=== PATIENT | female | born 1965 | race Caucasian/White ===

== ENCOUNTER 2025-07-16 15:55 | Outpatient (CLI) | payer OTHER, SELFPAY ==
--- NOTE | 2025-07-16 13:45 | DI.RAD_ITS ---
Exam(s) XR STANDING ALIGNMENT EXAM: XR STANDING ALIGNMENT CLINICAL HISTORY: OA BILAT KNEES. TECHNIQUE: 2D digital imaging was performed. Standing AP views were performed from the pelvis through the ankles. COMPARISON: CR XR KNEE 3V BILAT-M2 from 01/15/2025 FINDINGS: BONES: No acute fracture is present. No bony destructive lesion is seen. Leg length discrepancy: Approximate 15 millimeter overall leg length discrepancy, with the right femoral head projecting superior to the left.. JOINTS: Knees: There is severe degenerative changes of both medial femoral tibial joints causing mild varus angulation. Ankles: Mild degenerative changes of the medial tibiotalar joints. The hip joints show mild degenerative changes. SOFT TISSUE: Mild lower leg edema. IMPRESSION: Severe degenerative changes of the bilateral medial femoral tibial joints. 1.5 cm leg length discrepancy. DATA REPOSITORY: RADIATION DOSE DELIVERED:
== END 2025-07-16 15:56 | disposition home or self-care (01) ==
LOC: DIORS 15:55
PROVIDERS: Visit Provider Physician Assistant
DX: M17.12 Unilateral primary osteoarthritis, left knee (principal); M17.0 Bilateral primary osteoarthritis of knee
CPT/HCPCS: 80048; 85027; 77073

== ENCOUNTER 2025-07-24 06:52 | Day surgery (SDC) | payer OTHER, SELFPAY ==
[2025-07-16 16:10] LABS: HCT 39.6 % (36.0-46.0); HGB 12.9 g/dL (11.2-15.7); MCH 28.9 pg (27.0-33.0); MCHC 32.6 % (32.0-36.0); MCV 89 fL (80-95); MPV 9.6 fL (8.0-11.0); Platelet Count 400 10^3/uL (130-400); RBC 4.46 10^6/uL (3.93-5.22); RDW 13.0 % (11.7-14.6); RDW-SD 42.5 fL; WBC 8.35 10^3/uL (4.4-10.8)
[2025-07-16 16:39] LABS: Anion Gap 11.2 mmol/L (3-11); BUN 12 mg/dL (9-23); CO2 27.8 mmol/L (20.0-31.0); Calcium 9.5 mg/dL (8.3-10.6); Chloride 104 mmol/L (98-107); Glucose 90 mg/dL (74-106); Potassium 3.2 mmol/L (3.5-5.1); Sodium 143 mmol/L (136-145)
[2025-07-24] VITALS (10 sets, daily range): BP systolic 96–171; BP diastolic 36–83; PULSE 57–72; RESP 16–19; TEMP 36.1–36.8; O2SAT 92–97; BMI 28.8
[2025-07-24] MEDS: Acetaminophen 500 MG TAB 1000 MG PO (07:10)
[2025-07-24] MEDS: Gabapentin 300 MG CAP PO (07:11)
[2025-07-24] MEDS: Celecoxib 200 MG CAP 400 MG PO (07:13)
--- NOTE | 2025-07-24 07:28 | PDOC.DSDIS_ITS ---
Date of service: 07/24/25 Discharge Plan Disposition Patient Disposition: Home Condition: Good Discharge Details Reason For Visit: L TKR Attending Provider: Tony Blackburn Primary Care Provider: Jhony Mchugh Home Meds and New Rx's Prescriptions: New celecoxib 200 mg capsule 200 mg PO BID Qty: 60 0RF aspirin 81 mg tablet,delayed release (DR/EC) 81 mg PO BID Qty: 60 0RF acetaminophen 500 mg tablet 1,000 mg PO TID Qty: 90 3RF hydromorphone 2 mg tablet 2 mg PO Q4H PRN (Reason: pain) Qty: 18 0RF pantoprazole 40 mg tablet,delayed release (DR/EC) 40 mg PO DAILY Qty: 14 0RF dexamethasone 4 mg tablet 4 mg PO DAILY Qty: 2 0RF docusate sodium 100 mg capsule 100 mg PO BID PRNQty: 28 0RF gabapentin 300 mg capsule 300 mg PO QHS Qty: 14 0RF Continued metoprolol succinate 50 mg tablet extended release 24 hr 50 mg PO DAILY hydrochlorothiazide 25 mg tablet 25 mg PO DAILY omeprazole 20 mg capsule,delayed release(DR/EC) 20 mg PO DAILY Discharge Instructions Additional Instructions: Total Knee Discharge Instructions Activity: The most important activity is to walk and to work on gentle motion (both flexion and extension). You should try to take short walks a few times a day. It is important that when resting you work on keeping the knee straight. Avoid putting a pillow behind the knee as this will encourage flexion. Work on range of motion exercises as provided by Physical Therapy. - Start outpatient physical therapy within 2 weeks. - You should wear the ARNALDO hose on both legs for 2 weeks. You may remove these at night. You may also use any compression sock in place of the ARNALDO hose. - Utilize [employer] to review exercises, see videos on exercises and obtain basic information pertaining to your surgery and your recovery. Dressing: Remove the Jermaine wrap by 2 days after your surgery and put on the ARNALDO stocking given to you from the hospital. Keep the surgical dressing (underneath the JERMAINE wrap) in place for at least one week. After the first week it may be removed and replaced with light gauze and tape or nothing. The wound and dr marilia may get wet after 3 days but avoid soaking the dressing or otherwise it will need to be changed. Many people prefer covering the dressing with cling wrap (saran wrap) to minimize it from getting soaked. If it gets wet, just pat dry. If it starts to peel off then it will need to be changed. Medications: - You should take Tylenol and anti-inflammatory Celebrex as your primary pain control medications. If the Celebrex is too expensive or not covered, please call the office for another alternative (Advil/Ibuprofen or Naproxen/Aleve) - You have been prescribed a stronger pain medication Oxycodone for breakthrough pain, take as needed as prescribed. - You have also been prescribed a stomach acid reduction agent Pantoprozole to help reduce stomach acid and reflux. - You have been prescribed Gabapentin to take at night for restlessness and nerve pain. - You will be taking Aspirin 81mg twice a day for DVT prevention unless instructed otherwise. - You have also been prescribed Decadron to take to control post-operative nausea and pain. You will start this tomorrow. - If you have constipation you should take Colace or Miralax (both [id number]). It takes most people 3-4 days to have a bowel movement. Follow-up: 2 weeks If you have any acute concerns or questions, please do not hesitate to contact the office at [phone]. You may contact Dr. Blackburn with any questions after hours through the hospital at [phone] or on his cell phone at [phone]. Stand Alone Forms: Portal Information Referrals: Tony Blackburn MD [ [facility] STAFF PHYSICIAN, Orthopaedic Surgical] Equipment/Supplies: Walker Activity:: Activity as Tolerated Shower/Bathe:: 72 hours Diet:: As Tolerated Discharge Orders Discharge Orders: Discharge Order (Routine); Ordered 07/24/25 Ordered By: Deuce Rene DS: Diagnosis Discharge Diagnosis (1) Localized osteoarthritis of left knee: Status: Acute
[2025-07-24] MEDS: Lactated Ringers 1,000 ML 80 ML IV (07:38)
--- NOTE | 2025-07-24 07:48 | W.ANESPRE ---
General Info Date of Service Date Performed: 07/24/25 Height: 5 ft Weight: 66.8 kg Body Mass Index (BMI): 28.8 Surgical Procedure: Operation Date: 07/24/25 08:55 Proposed Procedure Side Surgeon p Knee Total Arthroplasty Right Tony Blackburn MD Meds Allergies and Home Medications Allergies Allergy/AdvReac Type Severity Reaction Status Date / Time acetaminophen (From Excedrin Allergy Intermediate facial Verified 07/24/25 07:07 Migraine) swelling aspirin (From Excedrin Allergy Intermediate facial Verified 07/24/25 07:07 Migraine) swelling caffeine (From Excedrin Allergy Intermediate facial Verified 07/24/25 07:07 Migraine) swelling ibuprofen Allergy Intermediate Other (See Verified 07/24/25 07:07 Comment) Sulfa (Sulfonamide Allergy Mild Hives Verified 07/24/25 07:07 Antibiotics) Home Medication ?Medication ?Instructions ?Recorded hydrochlorothiazide 25 mg tablet 25 mg PO DAILY 02/23/25 metoprolol succinate 50 mg 50 mg PO DAILY 02/23/25 tablet,extended release 24 hr omeprazole 20 mg capsule,delayed 20 mg PO DAILY 05/21/25 release acetaminophen 500 mg tablet 1,000 mg (2 x 500 mg) PO TID #90 07/24/25 tabs aspirin 81 mg tablet,delayed 81 mg PO BID #60 tabs 07/24/25 release celecoxib 200 mg capsule 200 mg PO BID #60 caps 07/24/25 dexamethasone 4 mg tablet 4 mg PO DAILY #2 tabs 07/24/25 docusate sodium 100 mg capsule 100 mg PO BID PRN #28 caps 07/24/25 gabapentin 300 mg capsule 300 mg PO QHS #14 caps 07/24/25 hydromorphone 2 mg tablet 2 mg PO Q4H PRN pain #18 tabs 07/24/25 pantoprazole 40 mg tablet,delayed 40 mg PO DAILY #14 tabs 07/24/25 release Current Visit Medications: Current Medications Generic Name Dose Route Start Last Admin Trade Name Freq PRN Reason Stop Dose Admin Acetaminophen 1,000 mg 07/24/25 06:00 07/24/25 07:10 Acetaminophen 500 Mg Tab PO 07/24/25 23:59 1,000 mg PREOP NATALIO Administration Acetaminophen 1,000 mg 07/24/25 07:26 Acetaminophen 500 Mg Tab PO 08/23/25 08:29 TID PRN Analgesia Celecoxib 400 mg 07/24/25 06:00 07/24/25 07:13 Celecoxib 200 Mg Cap PO 07/24/25 23:59 400 mg PREOP NATALIO Administration Celecoxib 200 mg 07/24/25 08:30 Celecoxib 200 Mg Cap PO 08/23/25 08:29 BID NATALIO Docusate Sodium 100 mg 07/24/25 07:26 Docusate Sodium 100 Mg Cap PO 08/23/25 07:25 BID PRN PRN Constipation Gabapentin 300 mg 07/24/25 06:00 07/24/25 07:11 Gabapentin 300 Mg Cap PO 07/24/25 23:59 300 mg PREOP NATALIO Administration Hydromorphone HCl 0 mg 07/24/25 07:26 Hydromorphone 2 Mg Tab PO 08/23/25 07:25 Q3H PRN PRN Pain Ringer's Solution 1,000 mls @ 80 mls/hr 07/24/25 06:00 07/24/25 07:38 IV 07/24/25 23:59 80 mls/hr INFUSION NATALIO Administration Cefazolin Sodium/Dextrose 2 gm in 50 mls @ 100 mls/hr 07/24/25 06:00 Ancef Duplex IVPB 07/24/25 23:59 PREOP NATALIO Tranexamic Acid/Sodium Chloride 1,000 mg in 100 mls @ 600 mls/hr 07/24/25 06:00 IVPB 07/24/25 23:59 PREOP NATALIO Ondansetron HCl 4 mg 07/24/25 07:26 Ondansetron 4 Mg/2 Ml Vial IVP 08/23/25 07:25 Q6H PRN PRN Nausea Polyethylene Glycol 17 gm 07/24/25 07:26 Polyethylene Glycol 3350 17 Gm Packet PO 08/23/25 07:25 BID PRN PRN Constipation Sodium Chloride 0 ml 07/24/25 06:00 Normal Saline Flush 10 Ml Syr IV 07/24/25 23:59 PRN PRN Sodium Chloride 0 ml 07/24/25 06:00 Normal Saline 10 Ml Vial IJ 07/24/25 23:59 DIRECTED PRN Sterile Water 0 ml 07/24/25 06:00 Water,Injection,Sterile 10 Ml Vial IJ 07/24/25 23:59 DIRECTED PRN PFSH Active Problems Active Problems: Problem Status Onset Code Localized osteoarthritis of left knee Acute M17.12 Osteoarthritis of right knee Acute M17.11 RAMESH (obstructive sleep apnea) Chronic G47.33 Lyme disease Acute A69.20 Hypertension Chronic I10 GERD (gastroesophageal reflux disease) Chronic K21.9 Medical History Medical History Urolithiasis Cholelithiasis Surgical History Surgical History History of section History of cholecystectomy Tobacco Smoking/Tobacco Use Status: Never Passive smoking exposure: Yes Alcohol Alcohol Intake: current Alcohol intake frequency: holidays/special occasions only Substance Use Substance use: Never Substance use type: does not use Vital Signs and Lab Results Vital Signs Most Recent Vital Signs in EMR: Most Recent Vital Signs Temp Pulse Resp BP Pulse Ox 36.3 C L 67 16 164/69 H 97 07/24/25 07:02 07/24/25 07:02 07/24/25 07:02 07/24/25 07:02 07/24/25 07:02 Lab Results 07/16/25 14:50 07/16/25 14:50 Complete Blood Count: WBC, (4.4-10.8) 8.35 10^3/uL 07/16/25, 14:50 RBC, (3.93-5.22) 4.46 10^6/uL 07/16/25, 14:50 Hgb, (11.2-15.7) 12.9 g/dL 07/16/25, 14:50 Hct, (36.0-46.0) 39.6 % 07/16/25, 14:50 Plt Count, (130-400) 400 10^3/uL 07/16/25, 14:50 Complete Metabolic Panel: Sodium, (136-145) 143 mmol/L 07/16/25, 14:50 Potassium, (3.5-5.1) 3.2 mmol/L L 07/16/25, 14:50 Chloride, (98-107) 104 mmol/L 07/16/25, 14:50 Carbon Dioxide, (20.0-31.0) 27.8 mmol/L 07/16/25, 14:50 BUN, (9-23) 12 mg/dL 07/16/25, 14:50 Creatinine, (0.55-1.02) 0.78 mg/dL 07/16/25, 14:50 Est GFR (CKD-EPI 2020), (mL/min/1.73m2) 75.91 07/16/25, 14:50 Calcium, (8.3-10.6) 9.5 mg/dL 07/16/25, 14:50 Glucose, (74-106) 90 mg/dL 07/16/25, 14:50 Anesthesia Assessment and Plan Anesthesia History Personal History: PONV and Delayed Emergence Family History: No Family History of Anesthesia Complications Exercise Tolerance Exercise Tolerance: Metabolic Equivalents>4 Pertinent Negatives Pertinent Negatives: No Symptoms of GERD, No Major Cardiovascular Symptoms or Complaints, No Major Pulmonary Symptoms or Complaints and No History of CVA/TIA Cardiac & Pulmonary Exam Cardiac Exam: Normal S1/S2 Heart Sounds Pulmonary Exam: Clear Bilateral Breath Sounds Implantable Cardiac Device Does patient have a Pacemaker or an ICD?: No Airway Exam Known Difficult Airway: No Mallampati Class: 2 Mouth Opening: Normal (> 3cm) Thyromental Distance: Greater than 3 cm Neck Range of Motion: Full ROM Neck Circumference: Normal Teeth Condition: Generalized Poor Dentition ASA Classification ASA Score: ASA 2 Emergency Case?: No NPO Status NPO Status: NPO Clears >2 hours, Solids >8 hours Anesthesia Plan Resuscitation Status: Full Code Anesthesia Technique: Spinal Anesthesia Airway Planned: Natural Airway Pain Management: Surgeon and patient request nerve block Monitors Used: Standard Monitors Preoperative Comments:: N/V with all of her C/Ss and just nausea with her Lap Henri
--- NOTE | 2025-07-24 09:07 | W.ANESNERVE ---
Nerve Block Single Injection Procedure Date and Time Date Performed: 07/24/25 Procedure Start: 08:55 Location Where Procedure Performed Procedure Location: Day Surgery Unit Reason Performed: Postoperative Analgesia Requesting Provider: Tony Blackburn Timeout Performed Timeout Performed: Yes Monitoring Used ECG, Blood Pressure and SpO2 Sterility Sterility: Hand Hygiene, Surgical Cap, Surgical Mask, Sterile Gloves and Chlorhexidine Sedation Given During Procedure Sedation Given (Indicate Dose Given): Versed IV Dose:: 2 mg Patient Mental Status Patient Mental Status: Sedate with meaningful communication Nerve Block 1st Nerve Block: Laterality: Right Block Type: Adductor Canal Ultrasound Image Saved?: Yes Needle / Catheter Used: 100mm SonoPlex II Local Anesthetic Bolus (Indicate Dose Given): Injected in 3-5ml increments after negative blood aspiration, Bupivacaine 0.25% Dose:: 10 ml and Exparel Dose:: 10 ml Additives (Indicate Dose Given): None Ultrasound: Sterile probe cover and gel used Nerve Stimulator: Supplement to Ultrasound use and No twitch or parasthesia noted < 0.5 mA Paresthesia: None Procedure Tolerated: No Complications and Patient tolerated well Procedure Outcome: Successful Performed By: Pipe Flood 2nd Nerve Block: Laterality: Right Block Type: Other (Anterior Femoral Cutaneous nerve block) Ultrasound Image Saved?: Yes Needle / Catheter Used: 100mm SonoPlex II Local Anesthetic Bolus (Indicate Dose Given): Injected in 3-5ml increments after negative blood aspiration and Bupivacaine 0.25% Dose:: 10 ml Additives (Indicate Dose Given): None Ultrasound: Sterile probe cover and gel used Nerve Stimulator: Supplement to Ultrasound use and No twitch or parasthesia noted < 0.5 mA Paresthesia: None Procedure Tolerated: No Complications and Patient tolerated well Procedure Outcome: Successful Performed By: Pipe Flood
[2025-07-24] MEDS: ceFAZolin 2 GM/50 ML BAG IVPB (09:26)
[2025-07-24] MEDS: TRANEXAMIC ACID/SOD. CHL. 1,000 MG/100 ML BAG 600 MG IVPB (09:34)
[2025-07-24] MEDS: ROPIvacaine/EPI/CLONIDINE/KET 50 ML SYRINGE IJ (09:47)
--- NOTE | 2025-07-24 10:36 | W.PM.OP ---
Operative Note Operative Note PRE-OP DIAGNOSIS: Right Knee Osteoarthritis POST-OP DIAGNOSIS: same PROCEDURE: Right Total Knee Replacement SURGEON: Tony Blackburn [employer] FACILITY OPERATOR: Sarwat Rene ANESTHESIA TYPE: Spinal Refer to Anesthesia Record ESTIMATED BLOOD LOSS: 50 PATHOLOGY: none sent TOURNIQUET TIME: 0 COMPLICATIONS: None Patient was transported to: PACU Patient's condition: stable Implants: 1. Depuy Attune Cementless Cruciate Retaining Femoral Component, Size 4 2. Depuy Attune Cementless Fixed Bearing Tibial Component, Size 3 3. Depuy Attune 4x5mm CR/FB Poly Indications: I have seen Shelli in clinic for symptoms of knee arthritis, confirmed with radiographic findings. She has exhausted nonoperative methods and was having significant limitations in daily function and desired better function and less pain. I discussed the technical details of a knee replacement. I explained the risks of the procedure to include, but not limited to, bleeding, infection, pain, stiffness, fracture, damage to nerves and vessels, damage to muscles and tendons, loosening, need for repeat procedure, blood clot and cardiopulmonary demise. Despite these risks, Shelli elected to proceed. Findings: There was significant signs of arthritis throughout the knee, most notably about the medial compartment and the trochlea. Procedure Description: Shelli was greeted in the preoperative holding area where the correct side was identified and marked. The consent was reviewed with the patient and signed. The history and physical was updated. All questions were answered. Preoperative medications were administered: Acetaminophen 1000mg, Celebrex 400mg, and Gabapentin 300mg. An adductor canal block was then administered by the anesthesia team in the DSU. Shelli was taken back to the operating room. A spinal anesthestic was then administered. The patient was placed into the supine position on the operating room table. Posts were placed for positioning during the procedure. All bony prominences were well padded. Prophylactic antibiotics in the form of Cefazolin were administered. 1g of Tranxemic Acid was given intravenously within 30 minutes of incision. The right leg was then prepped with Chloraprep and draped in a standard fashion with impervious stockinette. A second prep with Chloraprep was performed prior to application of Iodine impregnated skin protection. A timeout to confirm correct identity, side and site, procedure, allergies, anesthesia, and medical concerns was performed. With the knee in some flexion, a midline incision was made overlying the knee. Full thickness skin flaps were raised once the extensor mechanism was encountered. These were raised medially and laterally. Any bleeding was controlled with electrocautery. Once the extensor mechanism was fully exposed, a medial parapatellar arthrotomy was performed in a flexed position. All bleeding from the arthrotomy and the geniculate arteries was coagulated. A medial subperiosteal peel was performed with electrocautery to the midcoronal plane. Due to the significant varus deformity the entire medial tibial plateau was exposed. The fat pad was removed while keeping the patellar tendon protected. The anterior distal femur synovium was removed for later visualization. The ACL and PCL were resected and the anterior horn of the lateral meniscus was transected. The knee was then flexed with the patella everted. Large osteophytes from the tibia were removed. Large osteophytes from the femur were removed. Using a step drill, and based on preoperative templating, the femoral canal was entered. This was done with a step drill without any difficulty. The intramedullary distal femoral cut guide was inserted, set to a 6 degree valgus cut and 9mm cut thickness. The distal femoral cut guide was then held in position and pinned. With the soft tissues protected, the distal cut was performed. This was passed over a few times to ensure a planar cut. I then turned attention to the tibia. The extramedullary guide was placed onto the leg. The distal aspect was slid medial to adjust for position of center of ankle and stay in line with shaft of the tibia. Approximately 5 degrees of posterior slope was kept in the proximal cutting guide. The center of the guide was aligned with the PCL. The stylus was used to assess cut thickness. The medial side, most involved side, was set for a 4mm cut. This was then held in position and pinned into place with 2 additional pins and a cross pin for stability. The medial and lateral collateral ligaments were protected and the cut was performed. With this completed, it was assessed and noted to be of appropriate dimensions. The guide was removed. A spacer block was inserted and the knee was brought into extension. The 5mm spacer block provided full extension, without hyperextension and with stability of both the medial and lateral collateral ligaments was assessed. The pins from the femur and the tibia were then removed. The distal femur was then sized. The anterior stylus was placed onto the lateral ridge of the anterior femur. This indicated a size 4 femur. The external rotation of the guide was adjusted to 5 degrees to match the epicondylar axis, perpendicular to [place]?s line. The 4-in-1 cutting guide was the placed. The posterior medial femur cut was evaluated and appeared of good thickness. The spacer block was inserted underneath the cutting guide and stability was confirmed in 90 degrees of flexion. An brian wing was used to confirm appropriate position of the anterior cut to avoid notching. This cutting guide was ensured to be flush on the cut surface and then pinned into place with headed pins. While protecting the soft tissues, quad tendon, and collateral ligaments, the anterior and posterior cuts were performed with a saw. The central two pins were removed and the posterior and anterior chamfers were cut next. The notch-cutting guide was placed. This was pinned to lateralize the femoral component as much as possible while keeping it flush on the cut surface. This was then pinned into position. A reciprocating saw was used to make the notch cut. A rasp smoothed the cut surfaces. The medial and lateral menisci were removed. A trial femoral component was then inserted, impacted down to the cut surfaces, and the lug holes were drilled. A provisional trial tibial component was placed and the knee was brought through range of motion. There was noted to be excellent extension and flexion. There was no significant instability. The patella was tracking without thumbs. A size 5mm polyethylene component provided the best range of motion and stability with less than 2mm gapping with medial and lateral stress and full extension without significant hyperextension. The tibial cut surface was fully exposed. The tibia was then sized as a 3. The tibia had been previously marked during trialing to correspond to the center of the tibial component to help with rotation. The trial was aligned to this sarwat, approximately rotated to the medial 1/3rd of the tibial tubercle. The trial was pinned into place. The tibia was prepared with a reamer and a keel punch and lug holes. The patella was inspected and showed good chondral coverage throughout both medial lateral facets and the median ridge without defect and without deformity. There were some surrounding osteophytes of the patella which were resected. The trial components were removed. The final components were opened on the back table. The periosteal and capsular tissues, especially posteriorly, around the knee were then systematically injected with a periarticular cocktail consisting of 246mg of Ropivacaine, 0.5mg of Epinephrine, 0.08mg of Clonidine, and 30mg of Ketorolac, diluted to 100cc. On the back table, with the implants opened. The cementless knee components were placed. Starting with the tibial component, the tibia was subluxed anteriorly and the lug holes of the component were lined up. The tibia was then impacted with an impactor and mallet until the tibial component was in contact with the tibia. Then, the femoral component was inserted. The lug holes were aligned and the component was impacted into position. The final polyethylene component was inserted. The knee was irrigated with Surgiphor Betadine solution. This was allowed to sit in the knee for 3 minutes and then it was irrigated out with saline. The patella was tracking with a no-thumbs technique. A complete synovectomy was performed around the periphery of the patella. A lateral facetectomy was also performed. The capsule was then reapproximated with a No. 1 Vicryl at multiple locations. The capsule was finally closed with a No. 2 Stratafix, barbed suture. Deep tissues were then reapproximated with 0 Vicryl and 2-0 Vicryl. The skin was closed with a running 3-0 Monocryl in a subcuticular fashion. This was reinforced with skin glue. A Mepilex silver dressing was applied along with a [id number] EDGAR wrap. A CryoCuff was applied. Shelli was transferred to the hospital bed without difficulty an suffering no apparent complication. Shelli has a good prognosis. Physical therapy will start today and without restrictions, weight-bearing as tolerated. Aspirin 81mg BID will be used for DVT prophylaxis. Date of Procedure: 07/24/25
[2025-07-24] MEDS: HYDROmorphone 2 MG TAB PO (11:52)
[2025-07-24] MEDS: Tranexamic Acid 650 MG TAB 1300 MG PO (11:53)
--- NOTE | 2025-07-24 13:09 | ANES.POST_ITS ---
Postoperative Evaluation Date, Time and Location Date Performed: 07/24/25 Time Performed: 13:09 Patient Location: Day Surgery Unit Vital Signs Most Recent Imported Vital Signs: Most Recent Vital Signs Temp Pulse Resp BP Pulse Ox 36.1 C L 61 16 131/53 L 94 07/24/25 12:10 07/24/25 12:10 07/24/25 12:10 07/24/25 12:10 07/24/25 12:10 Pain Score Most Recent Pain Score: Most Recent Pain Score Pain Level 2 07/24/25 12:10 Assessment Mental Status: Awake (Alert & Oriented to Patient Baseline) Airway and Respiratory Function: Patent airway with normal (patient baseline) respiratory exam Cardiovascular Function: Hemodynamically Stable Hydration Status: Adequately Hydrated Nausea & Vomiting: Active Nausea or Vomiting Present Nausea and Vomiting Management: Nausea present without vomiting, patient wishes to be discharged Pain: Pain is tolerable per patient Peripheral Nerve Block: Regional nerve block not resolved at time of post op erative discharge
--- NOTE | 2025-07-24 13:29 | IN_ITS ---
PT Notes Visit Reasons: L TKR Physical Therapy Day Surgery Initial Evaluation Date:07/24/2025 Referring Doctor: BARBRA Amador/ Dr Blackburn PT Orders: PT CONSULT: PT evaluation and treatment Precautions: WBAT RLE, TEDs x 2 weeks Patient Profile/Admitting Diagnosis:Pt is a 59 yo female presenting s/p elective right TKA by Dr Blackburn under spinal anesthesia with Nerve Block on 07/24/2025. Post op complicated by nausea. PMHX: Localized osteoarthritis of left knee (Acute) Osteoarthritis of right knee (Acute) RAMESH (obstructive sleep apnea) (Chronic) Lyme disease (Acute) Hypertension (Chronic) GERD (gastroesophageal reflux disease) (Chronic) Medical History Urolithiasis Cholelithiasis Surgical History History of section History of cholecystectomy Social History/Home Situation: Pt resides in [address] home with ramp to enter. She is the primary caregiver for her mother who is on Hospice services. Pt states on the first floor. She sleeps on a couch. . 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 Equipment Owned/DME: wheelchair available ; fitted for and issued youth FWW Subjective: Pt reports she is nauseous but not dizzy. She states she wants to try moving even though she feels ill Objective: [] General Observation: pt presented reclined on stretcher with cryocuff to right knee, Her dtr present in room Mental Status: A+Ox4, cooperative, able to follow instructions agreeable to participate in assessment Pain: 2/10 right knee Vitals: 171/83 HR 72 ROM: [] Right Upper Extremity: WNL Left Upper Extremity: WNL Right Lower Extremity: hip and ankle WNL, knee 8-92 Left Lower Extremity:WFL Strength: [] BUE: 5/5 Right Lower Extremity:Hip flexion: 3-/5; hip abduction: 2+ /5; hip extension: 3- /5; knee extension: 3- /5; knee flexion: 2+ /5 ankle DF: >/= 3/5 ; ankle PF:>/=3 /5 Left Lower Extremity: 5/5 Sensation: intact to touch Bed Mobility/Transfers: [] Supine to sit SBA Sit to stand SBA with cues to push up Stand to sit SBA with cues to reach back Bed to chair with FWW CGA continuous cues for quad activation Gait: amb with FWW 50 feet step to pattern SBA with continuous cues for quad activation . Pt demonstrates right knee instability at mid stance without cues. impaired /diminished knee flexion at swing phase. reduced step length with adequate foot clearance Balance: [] Static Sitting: Normal Dynamic Sitting:Good Static Standing:Good with UE support Dynamic Standing: Fair with BUE support Special Tests: [] Mobility Limitations Standardized Measure [] [facility] AM-PAC 6 clicks Basic Mobility Inpatient Short Form: [] Raw Score: 17 CMS Score: 50.57% Informed Consent/Education: Patient instructed in purpose of PT consult. Treatment: 43444 Packet containing TKA exercise protocol has been given to patient. Education and training on initial set of 5 reps of exercises that can be done at home have been completed with patient. additional 2 sets of Quad sets to facilitate quad activation with small towel roll under knee. [id number]: functional mobility with FWW training with dtr. Dtr. instructed and demonstrates ability to provide proper cues for quad activation at mid stance during ambulation. Dtr instructed if pt feels nauseous after car ride to utilize wheelchair to enter her home . Assessment: Patient is a 59 yo female presents with post op nausea limiting her initially with participating in out of bed assessment. Pt required 30 min rest between sessions to complete full assessment. Pt vitals were stable she was limited only by nausea. After the rest period she was able to complete PT assessment and participate in training with her daughter. Pt demonstrates clinical signs and symptoms consistent with current/admitting diagnoses that have resulted to mobility limitations, gait instability, generalized weakness, and impairment of motor control as demonstrated by the following impairment level findings: 1. Decreased strength to right knee major muscle groups 2. Impaired standing balance 3. Limitation of joint range of motion in right knee 4. pain in right knee 5. nausea 6. impaired functional activity tolerance Impairments are contributing to the following functional limitations: 1. Inability to safely ambulate without assistive device 2. Increase completion time for mobility ADL performance 3. Increased fall risk Patient is assessed as a moderate complexity based on the following: History: 59-year-old female with impairment level findings, functional limitations, and past medical history as indicated above Examination: Demonstrable impairment in strength, balance, and mobility level with underlying impairments and functional limitations as documented above Presentation:stable / evolving Decision Making:moderate Goals: N/A. PT evaluation and 1-2 treatment sessions only for functional mobility training using recommended AD and for HEP instruction. Plan of Care/Treatment Plan: N/A. PT evaluation and 1-2 treatment session only for functional mobility training using recommended AD and for HEP instruction. DISCHARGE RECOMMENDATIONS: Home with HEP and Outpatient PT as scheduled TREATMENT CODE/TIME: 26126, 94262, [id number] /[id number], [id number] Thank you for the opportunity to participate in the care of this patient. Syl Russell PT [facility]
[2025-07-24] MEDS: Droperidol 5 MG/2 ML VIAL 0.625 MG IVP (14:17)
[2025-07-24] MEDS: Normal Saline Flush 10 ML SYR IV (14:21)
== END 2025-07-24 15:50 | disposition home or self-care (01) ==
PROVIDERS: Visit Provider Student in an Organized Health Care Education/Training Program
PROC: (CPT 27447; principal; 2025-07-24 08:45)
DX: M17.11 Unilateral primary osteoarthritis, right knee (principal); G89.18 Other acute postprocedural pain; I10 Essential (primary) hypertension; G47.33 Obstructive sleep apnea (adult) (pediatric)
CPT/HCPCS: 27447; 64447; 64450; 97110; 97162; 97530; C1776; J0665; J0666; J0690; J1100; J1790; J2250; J2371; J2401; J2405; J2704; J3475